=== PATIENT | female | born 1990 | race Hispanic/Latino ===

== ENCOUNTER 2017-08-10 19:52 | Outpatient (CLI) | payer MEDICAID ==
[2017-08-11 00:15] VITALS: BP 118/57
== END 2017-08-11 00:30 | disposition home or self-care (01) ==
LOC: TRG 19:52
PROVIDERS: ATTEND Obstetrics & Gynecology
DX: O47.03 False labor before 37 completed weeks of gestation, third trimester (principal); Z3A.32 32 weeks gestation of pregnancy
CPT/HCPCS: 59025